=== PATIENT | male | born 1940 | race Caucasian/White ===

== ENCOUNTER 2017-08-31 11:05 | Inpatient (IN) | payer MEDICARE ==
[~2017-08-31] VITALS: Ht 165.1 cm; Wt 71.4 kg
[~2017-08-31 11:05] MED LIST: BUPIVACAINE/PF 0.5% ONE; CEFAZOLIN 1,000 MG ONE; DEXAMETHASONE 4 MG/ML, 1ML ONE; EPINEPHRINE 1 MG/ML, 1ML ONE; HEPARIN 1,000 UNITS/ML, 10ML ONE; ONDANSETRON 2MG/ML, 2ML ONE; PHENYLEPHRINE 10 MG/ML ONE; PROPOFOL 10 MG/ML, 20ML ONE; PROTAMINE SULFATE 10 MG/ML, 5ML ONE; ROCURONIUM 10 MG/ML,10ML ONE; SUCCINYLCHOLINE 20 MG/ML, 10ML ONE; THROMBIN 5,000 UNIT VIAL TP ONE; VASOPRESSIN 20 UNIT/ML, 1ML ONE
[2017-08-31] MEDS ORDERED: AMLO10TA2 PO (11:56)
[2017-08-31] MEDS ORDERED: PANT40TA5 PO (11:56)
[2017-08-31] MEDS ORDERED: OMEG1CAP23 PO ×2 (11:56)
[2017-08-31] MEDS ORDERED: LISI40TA PO (11:56)
[2017-08-31] MEDS ORDERED: TRIA1TAB3 PO (11:56)
[2017-08-31] MEDS ORDERED: VIT1CAPS16 PO (11:56)
[2017-08-31] MEDS ORDERED: ASPI-496 PO (11:56)
[2017-08-31] MEDS ORDERED: ATOR40TA78 PO (11:56)
[2017-08-31] MEDS ORDERED: LACTATED RINGERS 1,000 ML IV SCH (11:57)
[2017-08-31 12:05] VITALS: BP 135/71
[2017-08-31 12:06] LABS: HEMATOCRIT 49.7 % (39.2-51.8); HEMOGLOBIN 17.1 g/dL (13.7-18.0); WHITE BLOOD COUNT 11.6 x10^3/uL (3.4-10)
[2017-08-31] MEDS ORDERED: MIDAZOLAM 1 MG/ML, 2ML ONE ×2 (12:16→12:55)
[2017-08-31] MEDS ORDERED: FENTANYL PF 250 MCG/5ML ONE ×2 (12:16→12:55)
[2017-08-31] MEDS ORDERED: LIDOCAINE-MPF 2% ,5ML ONE (12:17)
[2017-08-31 12:20] LABS: BLOOD UREA NITROGEN 34 mg/dL (7-18)
[2017-08-31 12:23] LABS: ASPARTATE AMINO TRANSFERASE 20 U/L (15-37)
[2017-08-31] MEDS ORDERED: VISIPAQUE 270 MG/ML, 150ML BOTTLE ONE (13:54)
[2017-08-31] MEDS ORDERED: OXYcodone 5 MG/5 ML ORAL.SOL UDC PO PRN (14:00)
[2017-08-31] MEDS ORDERED: LABETALOL 5MG/ML, 20ML IV PRN (14:00)
[2017-08-31] MEDS ORDERED: hydrALAzine 20 MG/ML, 1ML IV PRN (14:00)
[2017-08-31] MEDS ORDERED: ALBUTEROL SULFATE 2.5 MG/3 ML NPPB PRN (14:00)
[2017-08-31] MEDS ORDERED: MEPERIDINE/PF 25MG/0.5ML IVPush PRN (14:00)
[2017-08-31] MEDS ORDERED: ONDANSETRON 2MG/ML, 2ML IVPush PRN ×2 (14:00→17:30)
[2017-08-31] MEDS ORDERED: FENTANYL PF 100 MCG/2ML IV PRN (14:00)
[2017-08-31] MEDS ORDERED: ACETAMINOPHEN 325 MG TABLET PO PRN (14:00)
[2017-08-31] MEDS ORDERED: HYDROmorphone 1 MG/ML, 1ML IV PRN (14:00)
[2017-08-31] MEDS ORDERED: PROMETHAZINE 25 MG/ML, 1ML IV PRN (14:00)
[2017-08-31] MEDS ORDERED: MIDAZOLAM 1 MG/ML, 2ML IV PRN (14:00)
[2017-08-31] MEDS ORDERED: HEPARIN 1,000 UNITS/ML, 10ML ONE (15:27)
[2017-08-31] MEDS ORDERED: BACITRACIN 50,000 UNIT ONE (15:38)
[2017-08-31] MEDS ORDERED: ACETAMINOPHEN 650 MG/20.3 ML UDC ONE (17:53)
[2017-08-31] MEDS ORDERED: OXYcodone 5 MG/5 ML ORAL.SOL UDC ONE (17:53)
[2017-08-31 19:30] VITALS: BP 108/63
[2017-08-31] MEDS: LISINOPRIL 20 MG TABLET PO SCH (19:37)
[2017-08-31] MEDS ORDERED: TRIAMTERENE-HCTZ 37.5/25 MG TABLET PO SCH (21:00)
[2017-08-31] MEDS ORDERED: OMEGA-3/FISH OIL CAPSULE PO SCH (21:00)
[2017-08-31] MEDS ORDERED: ATORVASTATIN 40 MG TABLET PO SCH (21:00)
[2017-08-31] MEDS ORDERED: ASPIRIN 81 MG TABLET EC PO SCH (21:00)
[2017-08-31] MEDS: D5%-LACTATED RINGERS 1,000 ML IV SCH (22:03)
[2017-08-31 23:54] VITALS: BP 104/51
[2017-09-01 03:24] VITALS: BP 122/54
[2017-09-01 05:36] LABS: HEMATOCRIT 34.4 % (39.2-51.8); HEMOGLOBIN 11.9 g/dL (13.7-18.0); WHITE BLOOD COUNT 15.9 x10^3/uL (3.4-10)
[2017-09-01 05:44] LABS: BLOOD UREA NITROGEN 27 mg/dL (7-18)
[2017-09-01 07:23] VITALS: BP 105/51
[2017-09-01] MEDS: D5%-LACTATED RINGERS 1,000 ML IV SCH (08:00)
[2017-09-01] MEDS ORDERED: AMLODIPINE 5 MG TABLET PO SCH (09:00)
[2017-09-01] MEDS ORDERED: ENOXAPARIN 40 MG/0.4 ML SQ SCH (09:00)
[2017-09-01] MEDS: LISINOPRIL 20 MG TABLET PO SCH (09:00)
[2017-09-01] MEDS ORDERED: PANTOPROZOLE 40MG TABLET PO SCH (09:00)
[2017-09-01] MEDS ORDERED: HYDR-3240 PO (12:22)
[2017-09-01 12:34] VITALS: BP 127/67
== END 2017-09-01 13:15 | disposition home or self-care (01) | DRG 252 ==
LOC: ORIP 11:05 → EDSTATUS 13:00 → 4NOR 18:27 → DCLOUNGE 09-01 13:00
PROC: 047H3DZ Dilation of Right External Iliac Artery with Intraluminal Device, Percutaneous Approach (ICD-10-PCS; 2017-08-31)
PROC: 04CL0ZZ Extirpation of Matter from Left Femoral Artery, Open Approach (ICD-10-PCS; 2017-08-31)
PROC: 04UL0JZ Supplement Left Femoral Artery with Synthetic Substitute, Open Approach (ICD-10-PCS; 2017-08-31)
PROC: 04CK0ZZ Extirpation of Matter from Right Femoral Artery, Open Approach (ICD-10-PCS; principal; 2017-08-31 13:00)
PROC: 04UK0JZ Supplement Right Femoral Artery with Synthetic Substitute, Open Approach (ICD-10-PCS; 2017-08-31 13:00)
DX: I73.9 Peripheral vascular disease, unspecified (principal); N17.0 Acute kidney failure with tubular necrosis; E78.5 Hyperlipidemia, unspecified; I10 Essential (primary) hypertension; K21.9 Gastro-esophageal reflux disease without esophagitis; I70.8 Atherosclerosis of other arteries
CPT/HCPCS: 36245; 36246; 36415; 37221; 71010; 75630; 76937; 80048; 80053; 81003; 82040; 85025; 86850; 86900; 93005; C1725; J0171; J0690; J1100; J1644; J1650; J2250; J2405; J2704; J2720; J3010; J3490; Q9966; C1751; C1768; C1769; C1876; C1894; J0330; J2370; J7120; J7121

== ENCOUNTER 2018-08-10 19:34 | Inpatient (IN) | payer MEDICARE ==
[~2018-08-10] VITALS: Ht 167.6 cm; Wt 66.8 kg
[~2018-08-10 19:34] MED LIST changes: +AMLO10TA6 PO; +ASPI-496 PO; +ATOR40TA78 PO; -BUPIVACAINE/PF 0.5% ONE; -CEFAZOLIN 1,000 MG ONE; -DEXAMETHASONE 4 MG/ML, 1ML ONE; -EPINEPHRINE 1 MG/ML, 1ML ONE; -HEPARIN 1,000 UNITS/ML, 10ML ONE; +HYDR-3240 PO; +LISI40TA PO; +OMEG1CAP23 PO; -ONDANSETRON 2MG/ML, 2ML ONE; +PANT40TA5 PO; -PHENYLEPHRINE 10 MG/ML ONE; -PROPOFOL 10 MG/ML, 20ML ONE; -PROTAMINE SULFATE 10 MG/ML, 5ML ONE; -ROCURONIUM 10 MG/ML,10ML ONE; -SUCCINYLCHOLINE 20 MG/ML, 10ML ONE; -THROMBIN 5,000 UNIT VIAL TP ONE; +TRIA1TAB3 PO; -VASOPRESSIN 20 UNIT/ML, 1ML ONE; +VIT1CAPS16 PO
[2018-08-10] MEDS ORDERED: DIPH,PERTUSS(ACELL),TET VAC/PF 0.5 ML IM-VACC ONE ×2 (19:58→20:00)
[2018-08-10] MEDS ORDERED: ONDANSETRON 2MG/ML, 2ML ONE (20:14)
[2018-08-10] MEDS ORDERED: HYDROmorphone 2 MG/ML, 1ML ONE ×3 (20:15→22:53)
[2018-08-10] MEDS: HYDROmorphone 1 MG/ML, 1ML IVPush PRN ×2 (20:24→21:50)
[2018-08-10] MEDS ORDERED: SODIUM CHLORIDE FLUSH 10ML SYR IVF ONE (20:30)
[2018-08-10] MEDS ORDERED: ONDANSETRON 2MG/ML, 2ML IVPush ONE (20:30)
[2018-08-10] MEDS ORDERED: LIDOCAINE-MPF 1%, 5ML INFIL ONE (20:30)
[2018-08-10] MEDS ORDERED: LIDOCAINE-MPF 1%, 5ML ONE (20:32)
[2018-08-10] MEDS ORDERED: BACITRACIN ZINC OINT 500U/GM, 0.9 GM ONE ×2 (20:38→23:01)
[2018-08-10] MEDS ORDERED: HYDROmorphone 2 MG/ML, 1ML IV ONE (21:30)
[2018-08-10] MEDS ORDERED: HYDROmorphone 2 MG/ML, 1ML IVPush PRN (22:30)
[2018-08-10] MEDS ORDERED: HYDROmorphone PCA 30 MG/30 ML IV PRN (23:00)
[2018-08-11] MEDS ORDERED: SODIUM CHLORIDE 0.9% 1,000 ML IV SCH (00:48)
[2018-08-11] MEDS ORDERED: ONDANSETRON ODT 4 MG PO PRN (01:00)
[2018-08-11] MEDS ORDERED: KETOROLAC 30 MG/1 ML IV PRN (01:00)
[2018-08-11] MEDS ORDERED: ACETAMINOPHEN 325 MG TABLET PO PRN (01:00)
[2018-08-11] MEDS ORDERED: BISACODYL 10 MG SUPP PR PRN (01:00)
[2018-08-11] MEDS ORDERED: LABETALOL 5MG/ML, 20ML IVPush PRN (01:00)
[2018-08-11] MEDS ORDERED: HYDROmorphone PCA 30 MG/30 ML IV PRN (01:00)
[2018-08-11] MEDS ORDERED: IBUPROFEN 600 MG TABLET PO PRN (01:00)
[2018-08-11] MEDS ORDERED: ONDANSETRON 2MG/ML, 2ML IVPush PRN (01:00)
[2018-08-11] MEDS ORDERED: ALBUTEROL SULFATE 2.5 MG/3 ML NPPB PRN (01:00)
[2018-08-11] MEDS ORDERED: ENALAPRILAT 1.25 MG/ML, 2ML IVPush PRN (01:00)
[2018-08-11] MEDS ORDERED: TRAZODONE 50MG TABLET PO PRN (01:00)
[2018-08-11] MEDS: HEPARIN 5,000 UNITS/ML, 1ML SQ SCH ×2 (02:14→07:58)
[2018-08-11] MEDS: NICOTINE 14MG/24 HR PATCH.TD24 TD SCH (02:14)
[2018-08-11] MEDS: HYDROcodone/APAP 5/325 TABLET PO PRN ×4 (03:57→18:24)
[2018-08-11 04:45] LABS: ALBUMIN 3.6 g/dL (3.4-5.0); ANION GAP 8 mmol/L (5-15); CALCIUM 8.5 mg/dL (8.5-10.1); CHLORIDE 108 mmol/L (98-107)
[2018-08-11 04:49] LABS: ALANINE AMINOTRANSFERASE 47 U/L (12-78); ALKALINE PHOSPHATASE 107 U/L (45-117); BILIRUBIN,TOTAL 1.5 mg/dL (0.2-1.0); CREATININE 1.62 mg/dL (0.7-1.3); TOTAL PROTEIN 6.8 g/dL (6.4-8.2)
[2018-08-11] MEDS ORDERED: ASPIRIN 81 MG TABLET EC PO SCH (06:00)
[2018-08-11] MEDS: PANTOPROZOLE 40MG TABLET PO SCH (07:59)
[2018-08-11] MEDS: SENNA/DOCUSATE TABLET PO SCH (07:59)
[2018-08-11] MEDS: LISINOPRIL 20 MG TABLET PO SCH ×2 (13:09→20:42)
[2018-08-11] MEDS: TAMSULOSIN 0.4 MG CAP.ER.24H PO SCH (13:12)
[2018-08-11] MEDS: AMLODIPINE 10 MG TAB PO SCH (13:14)
[2018-08-11] MEDS: LIDODERM 5% PATCH TD SCH (14:14)
[2018-08-11] MEDS: ALBUTEROL/IPRATROPIUM 2.5MG/0.5MG, 3 ML IPPB SCH ×2 (15:00→20:06)
[2018-08-11 15:29] LABS: BASOPHILS # (AUTO) 0.02 x10^3/uL (0-0.1); BASOPHILS % (AUTO) 0 % (0-1); EOSINOPHILS # (AUTO) 0.11 x10^3/uL (0-0.4); EOSINOPHILS % (AUTO) 1 % (1-7); LYMPHOCYTES # (AUTO) 1.16 x10^3/uL (1-3.4); LYMPHOCYTES % (AUTO) 10 % (22-44); MD NO; MEAN CORPUSCULAR HEMOGLOBIN 33.2 pg (27.5-34.5); MEAN CORPUSCULAR HGB CONC 34.4 g/dL (33.2-36.2); MEAN CORPUSCULAR VOLUME 96.7 fL (81-97); MEAN PLATELET VOLUME 7.1 fL (7.4-10.4); MONOCYTES # (AUTO) 1.01 x10^3/uL (0.2-0.8); MONOCYTES % (AUTO) 9 % (2-9); NEUTROPHILS # (AUTO) 9.52 x10^3/uL (1.8-6.8); NEUTROPHILS % (AUTO) 81 % (42-75); PLATELET COUNT 235 x10^3/uL (130-400); RED BLOOD COUNT 4.21 x10^6/uL (4.38-5.82); RED CELL DISTRIBUTION WIDTH 12.6 % (9.4-14.8)
[2018-08-11 15:40] LABS: ALANINE AMINOTRANSFERASE 49 U/L (12-78); ALBUMIN 3.5 g/dL (3.4-5.0); ANION GAP 7 mmol/L (5-15); CALCIUM 8.3 mg/dL (8.5-10.1); CHLORIDE 106 mmol/L (98-107); CREATININE 1.42 mg/dL (0.7-1.3)
[2018-08-11 15:42] LABS: ALKALINE PHOSPHATASE 107 U/L (45-117); BILIRUBIN,TOTAL 1.6 mg/dL (0.2-1.0)
[2018-08-11] MEDS: OXYcodone IR 5MG TABLET PO PRN (17:00)
[2018-08-11] MEDS: ATORVASTATIN 40 MG TABLET PO SCH (20:42)
[2018-08-11] MEDS: TRIAMTERENE-HCTZ 37.5/25 MG TABLET PO SCH (20:42)
[2018-08-12] MEDS ORDERED: SODIUM CHLORIDE 0.9% 1,000 ML IV SCH ×3 (00:48)
[2018-08-12] MEDS: ALBUTEROL/IPRATROPIUM 2.5MG/0.5MG, 3 ML IPPB SCH ×2 (02:56→09:38)
[2018-08-12 04:43] LABS: BASOPHILS # (AUTO) 0.04 x10^3/uL (0-0.1); BASOPHILS % (AUTO) 0 % (0-1); EOSINOPHILS # (AUTO) 0.19 x10^3/uL (0-0.4); EOSINOPHILS % (AUTO) 2 % (1-7); LYMPHOCYTES # (AUTO) 1.31 x10^3/uL (1-3.4); LYMPHOCYTES % (AUTO) 13 % (22-44); MD NO; MEAN CORPUSCULAR HEMOGLOBIN 32.5 pg (27.5-34.5); MEAN CORPUSCULAR HGB CONC 33.7 g/dL (33.2-36.2); MEAN CORPUSCULAR VOLUME 96.3 fL (81-97); MEAN PLATELET VOLUME 7.3 fL (7.4-10.4); MONOCYTES # (AUTO) 0.89 x10^3/uL (0.2-0.8); MONOCYTES % (AUTO) 9 % (2-9); NEUTROPHILS # (AUTO) 7.78 x10^3/uL (1.8-6.8); NEUTROPHILS % (AUTO) 76 % (42-75); PLATELET COUNT 206 x10^3/uL (130-400); RED BLOOD COUNT 3.87 x10^6/uL (4.38-5.82); RED CELL DISTRIBUTION WIDTH 12.2 % (9.4-14.8)
[2018-08-12 04:55] LABS: ALBUMIN 3.2 g/dL (3.4-5.0); ANION GAP 3 mmol/L (5-15); CALCIUM 8.5 mg/dL (8.5-10.1); CHLORIDE 110 mmol/L (98-107)
[2018-08-12 05:00] LABS: ALANINE AMINOTRANSFERASE 41 U/L (12-78); ALKALINE PHOSPHATASE 87 U/L (45-117); BILIRUBIN,TOTAL 0.9 mg/dL (0.2-1.0); CREATININE 1.19 mg/dL (0.7-1.3); TOTAL PROTEIN 6.3 g/dL (6.4-8.2)
[2018-08-12] MEDS: NICOTINE 14MG/24 HR PATCH.TD24 TD SCH (06:02)
[2018-08-12] MEDS: OXYcodone IR 5MG TABLET PO PRN ×2 (06:05→13:04)
[2018-08-12] MEDS: LISINOPRIL 20 MG TABLET PO SCH ×2 (09:00→20:51)
[2018-08-12] MEDS: HYDROcodone/APAP 5/325 TABLET PO PRN ×3 (10:16→20:51)
[2018-08-12] MEDS: PANTOPROZOLE 40MG TABLET PO SCH (10:16)
[2018-08-12 10:38] LABS: MICROSCOPIC NOT IND
[2018-08-12 10:39] LABS: CULTURE INDICATED? NO
[2018-08-12] MEDS ORDERED: BUDESONIDE 0.5 MG/2 ML INHA INH PRN (13:00)
[2018-08-12] MEDS: TAMSULOSIN 0.4 MG CAP.ER.24H PO SCH (15:32)
[2018-08-12] MEDS: AMLODIPINE 10 MG TAB PO SCH (15:32)
[2018-08-12] MEDS: SENNA/DOCUSATE TABLET PO SCH (15:33)
[2018-08-12] MEDS: LIDODERM 5% PATCH TD SCH (15:33)
[2018-08-12] MEDS: TRIAMTERENE-HCTZ 37.5/25 MG TABLET PO SCH (20:51)
[2018-08-12] MEDS: ATORVASTATIN 40 MG TABLET PO SCH (20:51)
[2018-08-13] MEDS: OXYcodone IR 5MG TABLET PO PRN ×3 (04:03→16:10)
[2018-08-13] MEDS: NICOTINE 14MG/24 HR PATCH.TD24 TD SCH (04:03)
[2018-08-13 04:29] LABS: BASOPHILS # (AUTO) 0.04 x10^3/uL (0-0.1); BASOPHILS % (AUTO) 0 % (0-1); EOSINOPHILS # (AUTO) 0.37 x10^3/uL (0-0.4); EOSINOPHILS % (AUTO) 3 % (1-7); LYMPHOCYTES # (AUTO) 1.79 x10^3/uL (1-3.4); LYMPHOCYTES % (AUTO) 16 % (22-44); MD NO; MEAN CORPUSCULAR HEMOGLOBIN 32.5 pg (27.5-34.5); MEAN CORPUSCULAR HGB CONC 33.4 g/dL (33.2-36.2); MEAN CORPUSCULAR VOLUME 97.3 fL (81-97); MEAN PLATELET VOLUME 7.2 fL (7.4-10.4); MONOCYTES % (AUTO) 10 % (2-9); NEUTROPHILS # (AUTO) 8.17 x10^3/uL (1.8-6.8); NEUTROPHILS % (AUTO) 71 % (42-75); PLATELET COUNT 218 x10^3/uL (130-400); RED BLOOD COUNT 4.03 x10^6/uL (4.38-5.82); RED CELL DISTRIBUTION WIDTH 12.3 % (9.4-14.8)
[2018-08-13 04:39] LABS: ANION GAP 8 mmol/L (5-15); CALCIUM 8.8 mg/dL (8.5-10.1); CHLORIDE 110 mmol/L (98-107)
[2018-08-13] MEDS: TAMSULOSIN 0.4 MG CAP.ER.24H PO SCH (08:32)
[2018-08-13] MEDS: PANTOPROZOLE 40MG TABLET PO SCH (08:32)
[2018-08-13] MEDS: SENNA/DOCUSATE TABLET PO SCH (08:32)
[2018-08-13] MEDS: LISINOPRIL 20 MG TABLET PO SCH ×2 (08:32→20:42)
[2018-08-13] MEDS: ALBUTEROL/IPRATROPIUM 2.5MG/0.5MG, 3 ML NPPB SCH ×3 (09:00→19:47)
[2018-08-13] MEDS: LIDODERM 5% PATCH TD SCH (13:04)
[2018-08-13] MEDS: AMLODIPINE 10 MG TAB PO SCH (13:04)
[2018-08-13] MEDS: HYDROcodone/APAP 5/325 TABLET PO PRN ×2 (13:05→20:43)
[2018-08-13] MEDS ORDERED: ALBUTEROL/IPRATROPIUM 2.5MG/0.5MG, 3 ML NPPB SCH (15:00)
[2018-08-13] MEDS: ATORVASTATIN 40 MG TABLET PO SCH (20:42)
[2018-08-13] MEDS: TRIAMTERENE-HCTZ 37.5/25 MG TABLET PO SCH (20:43)
[2018-08-13] MEDS ORDERED: SODIUM CHLORIDE 0.9%, 500ML IVBOLUS ONE (23:30)
[2018-08-14 02:24] LABS: ANION GAP 8 mmol/L (5-15); CALCIUM 8.6 mg/dL (8.5-10.1); CHLORIDE 109 mmol/L (98-107)
[2018-08-14 02:25] LABS: BASOPHILS # (AUTO) 0.04 x10^3/uL (0-0.1); BASOPHILS % (AUTO) 0 % (0-1); EOSINOPHILS # (AUTO) 0.42 x10^3/uL (0-0.4); EOSINOPHILS % (AUTO) 4 % (1-7); LYMPHOCYTES # (AUTO) 1.42 x10^3/uL (1-3.4); LYMPHOCYTES % (AUTO) 14 % (22-44); MD NO; MEAN CORPUSCULAR HEMOGLOBIN 32.9 pg (27.5-34.5); MEAN CORPUSCULAR HGB CONC 34.4 g/dL (33.2-36.2); MEAN CORPUSCULAR VOLUME 95.8 fL (81-97); MONOCYTES % (AUTO) 12 % (2-9); NEUTROPHILS # (AUTO) 7.39 x10^3/uL (1.8-6.8); NEUTROPHILS % (AUTO) 70 % (42-75); PLATELET COUNT 204 x10^3/uL (130-400); RED BLOOD COUNT 3.69 x10^6/uL (4.38-5.82); RED CELL DISTRIBUTION WIDTH 12.6 % (9.4-14.8)
[2018-08-14 02:53] LABS: MICROSCOPIC AUTO
[2018-08-14] MEDS: HYDROcodone/APAP 5/325 TABLET PO PRN ×5 (02:53→22:31)
[2018-08-14 02:59] LABS: CREATININE,URINE RANDOM 81.2 mg/dL
[2018-08-14] MEDS ORDERED: SODIUM CHLORIDE 0.9% 1,000ML IVBOLUS ONE ×2 (03:00→04:30)
[2018-08-14] MEDS: NICOTINE 14MG/24 HR PATCH.TD24 TD SCH (04:15)
[2018-08-14] MEDS: ALBUTEROL/IPRATROPIUM 2.5MG/0.5MG, 3 ML NPPB SCH ×3 (07:15→20:10)
[2018-08-14] MEDS: TAMSULOSIN 0.4 MG CAP.ER.24H PO SCH (08:22)
[2018-08-14] MEDS: LISINOPRIL 20 MG TABLET PO SCH ×2 (08:22→20:50)
[2018-08-14] MEDS: PANTOPROZOLE 40MG TABLET PO SCH (08:22)
[2018-08-14] MEDS: AMLODIPINE 10 MG TAB PO SCH (08:22)
[2018-08-14] MEDS: SENNA/DOCUSATE TABLET PO SCH (08:22)
[2018-08-14 09:12] VITALS: BP 149/55
[2018-08-14] MEDS: DOCUSATE 100 MG CAPSULE PO PRN (10:16)
[2018-08-14] MEDS: POLYETHYLENE GLYCOL 17 GM PACKET PO PRN (10:16)
[2018-08-14 12:32] VITALS: BP 146/61
[2018-08-14 19:46] VITALS: BP 158/66
[2018-08-14] MEDS: TRIAMTERENE-HCTZ 37.5/25 MG TABLET PO SCH (20:49)
[2018-08-14] MEDS: ATORVASTATIN 40 MG TABLET PO SCH (20:49)
[2018-08-14] MEDS: LIDODERM 5% PATCH TD SCH (20:56)
[2018-08-15 03:06] VITALS: BP 129/66
[2018-08-15] MEDS: NICOTINE 14MG/24 HR PATCH.TD24 TD SCH (03:48)
[2018-08-15] MEDS: HYDROcodone/APAP 5/325 TABLET PO PRN ×3 (06:11→22:21)
[2018-08-15 06:47] VITALS: BP 154/69
[2018-08-15] MEDS: PANTOPROZOLE 40MG TABLET PO SCH (08:41)
[2018-08-15] MEDS: SENNA/DOCUSATE TABLET PO SCH (08:41)
[2018-08-15] MEDS: DOCUSATE 100 MG CAPSULE PO PRN (08:41)
[2018-08-15] MEDS: LISINOPRIL 20 MG TABLET PO SCH ×2 (08:41→20:49)
[2018-08-15] MEDS: TAMSULOSIN 0.4 MG CAP.ER.24H PO SCH (08:41)
[2018-08-15] MEDS: POLYETHYLENE GLYCOL 17 GM PACKET PO PRN (08:42)
[2018-08-15] MEDS: AMLODIPINE 10 MG TAB PO SCH (08:43)
[2018-08-15] MEDS ORDERED: AMLODIPINE 5 MG TABLET ONE (08:43)
[2018-08-15] MEDS: ALBUTEROL/IPRATROPIUM 2.5MG/0.5MG, 3 ML NPPB SCH ×3 (09:00→21:40)
[2018-08-15 09:55] LABS: ALANINE AMINOTRANSFERASE 46 U/L (12-78); ALBUMIN 3.3 g/dL (3.4-5.0); ANION GAP 7 mmol/L (5-15); CALCIUM 9.5 mg/dL (8.5-10.1); CHLORIDE 107 mmol/L (98-107)
[2018-08-15 09:58] LABS: ALKALINE PHOSPHATASE 95 U/L (45-117); BILIRUBIN,TOTAL 1.2 mg/dL (0.2-1.0); CREATININE 1.13 mg/dL (0.7-1.3); TOTAL PROTEIN 7.6 g/dL (6.4-8.2)
[2018-08-15 12:34] VITALS: BP 145/60
[2018-08-15 20:03] VITALS: BP 146/57
[2018-08-15] MEDS: ATORVASTATIN 40 MG TABLET PO SCH (20:48)
[2018-08-15] MEDS: TRIAMTERENE-HCTZ 37.5/25 MG TABLET PO SCH (20:48)
[2018-08-15] MEDS: LIDODERM 5% PATCH TD SCH (20:49)
[2018-08-15 20:53] VITALS: BP 138/61
[2018-08-16 02:10] VITALS: BP 152/63
[2018-08-16] MEDS: NICOTINE 14MG/24 HR PATCH.TD24 TD SCH ×2 (04:00→22:23)
[2018-08-16] MEDS: HYDROcodone/APAP 5/325 TABLET PO PRN ×6 (04:49→23:45)
[2018-08-16 07:40] VITALS: BP 139/51
[2018-08-16] MEDS: ALBUTEROL/IPRATROPIUM 2.5MG/0.5MG, 3 ML NPPB SCH ×2 (07:58→19:59)
[2018-08-16] MEDS: PANTOPROZOLE 40MG TABLET PO SCH (09:18)
[2018-08-16] MEDS: TAMSULOSIN 0.4 MG CAP.ER.24H PO SCH (09:18)
[2018-08-16] MEDS: AMLODIPINE 10 MG TAB PO SCH (09:18)
[2018-08-16] MEDS: LISINOPRIL 20 MG TABLET PO SCH ×2 (09:18→22:18)
[2018-08-16] MEDS: SENNA/DOCUSATE TABLET PO SCH (09:18)
[2018-08-16] MEDS ORDERED: LIDO700A20 TD (13:31)
[2018-08-16] MEDS ORDERED: BISA10SU65 PR (13:31)
[2018-08-16] MEDS ORDERED: TAMS-11 PO (13:31)
[2018-08-16] MEDS ORDERED: DOCU-131 PO (13:31)
[2018-08-16] MEDS ORDERED: ACET325T14 PO (13:31)
[2018-08-16] MEDS ORDERED: BUDE0.5A INH (13:31)
[2018-08-16] MEDS ORDERED: SENN1TAB8 PO (13:31)
[2018-08-16] MEDS ORDERED: IPRA3AMP30 NPPB (13:31)
[2018-08-16] MEDS ORDERED: HYDR-3240 PO (13:31)
[2018-08-16 14:00] VITALS: BP 117/64
[2018-08-16 19:20] VITALS: BP 136/65
[2018-08-16] MEDS: ATORVASTATIN 40 MG TABLET PO SCH (22:17)
[2018-08-16] MEDS: LIDODERM 5% PATCH TD SCH (22:18)
[2018-08-16] MEDS: TRIAMTERENE-HCTZ 37.5/25 MG TABLET PO SCH (22:18)
[2018-08-17] MEDS: HYDROcodone/APAP 5/325 TABLET PO PRN ×3 (03:26→13:32)
[2018-08-17 03:39] VITALS: BP 141/61
[2018-08-17 06:50] VITALS: BP 132/52
[2018-08-17] MEDS: ALBUTEROL/IPRATROPIUM 2.5MG/0.5MG, 3 ML NPPB SCH (09:00)
[2018-08-17] MEDS: AMLODIPINE 10 MG TAB PO SCH (09:06)
[2018-08-17] MEDS: LISINOPRIL 20 MG TABLET PO SCH (09:07)
[2018-08-17] MEDS: PANTOPROZOLE 40MG TABLET PO SCH (09:07)
[2018-08-17] MEDS: TAMSULOSIN 0.4 MG CAP.ER.24H PO SCH (09:07)
[2018-08-17] MEDS: SENNA/DOCUSATE TABLET PO SCH (09:07)
[2018-08-17 13:04] VITALS: BP 113/52
== END 2018-08-17 16:46 | DRG 183 ==
LOC: ED 22:52 → EDIP 22:53 → ED 23:12 → CCU 08-11 00:52 → 4NOR 08-14 08:42
PROVIDERS: ADMIT Internal Medicine; ATTEND Internal Medicine
PROC: 0HQ1XZZ Repair Face Skin, External Approach (ICD-10-PCS; principal; 2018-08-10)
PROC: 0HQEXZZ Repair Left Lower Arm Skin, External Approach (ICD-10-PCS; 2018-08-10)
PROC: 2W38XYZ Immobilization of Right Upper Extremity using Other Device (ICD-10-PCS; 2018-08-10)
DX: S22.41XA Multiple fractures of ribs, right side, initial encounter for closed fracture (principal); N17.0 Acute kidney failure with tubular necrosis; S06.0X9A Concussion with loss of consciousness of unspecified duration, initial encounter; S22.029A Unspecified fracture of second thoracic vertebra, initial encounter for closed fracture; S12.600A Unspecified displaced fracture of seventh cervical vertebra, initial encounter for closed fracture; S22.019A Unspecified fracture of first thoracic vertebra, initial encounter for closed fracture; S22.059A Unspecified fracture of T5-T6 vertebra, initial encounter for closed fracture; S22.049A Unspecified fracture of fourth thoracic vertebra, initial encounter for closed fracture; S22.039A Unspecified fracture of third thoracic vertebra, initial encounter for closed fracture; I11.9 Hypertensive heart disease without heart failure; F17.210 Nicotine dependence, cigarettes, uncomplicated; I73.9 Peripheral vascular disease, unspecified; M48.02 Spinal stenosis, cervical region; Y93.89 Activity, other specified; Y92.828 Other wilderness area as the place of occurrence of the external cause; Y99.8 Other external cause status; G89.11 Acute pain due to trauma; J44.9 Chronic obstructive pulmonary disease, unspecified; K21.9 Gastro-esophageal reflux disease without esophagitis; K80.20 Calculus of gallbladder without cholecystitis without obstruction; M43.12 Spondylolisthesis, cervical region; M46.92 Unspecified inflammatory spondylopathy, cervical region; S01.81XA Laceration without foreign body of other part of head, initial encounter; S40.019A Contusion of unspecified shoulder, initial encounter; S42.021A Displaced fracture of shaft of right clavicle, initial encounter for closed fracture; S42.111A Displaced fracture of body of scapula, right shoulder, initial encounter for closed fracture; W17.81XA Fall down embankment (hill), initial encounter; Z85.46 Personal history of malignant neoplasm of prostate; Z86.73 Personal history of transient ischemic attack (TIA), and cerebral infarction without residual deficits; Z95.820 Peripheral vascular angioplasty status with implants and grafts; R33.9 Retention of urine, unspecified; E78.5 Hyperlipidemia, unspecified; Z23 Encounter for immunization
CPT/HCPCS: 12001; 12013; 36415; 70450; 71045; 71250; 72125; 80048; 80053; 81001; 81003; 82436; 82570; 84133; 84300; 85025; 87081; 90471; 90715; 93005; 94640; 96374; 96375; 96376; 99291; G0378; J1170; J1644; J2405; J7620; J7030; J7040